=== PATIENT | female | born 1985 | race Asian ===

== ENCOUNTER 2019-01-08 23:33 | Emergency (ER) | payer BC ==
[2019-01-09] MEDS ORDERED: Albuterol/Ipratropium NEB.SOL* Albuterol 2.5 MG/Ipratropium 0.5 MG 3 ML INH ONE (02:05)
[2019-01-09 02:09] LABS: Hematocrit 40 % (35-47); Hemoglobin 14.5 g/dL (12.0-16.0); Mean Corpuscular HGB Conc 36 g/dL (31-36); Mean Corpuscular Hemoglobin 31 pg (27-31); Mean Corpuscular Volume 85 fL (80-97); Mean Platelet Volume 7.8 fL (7.4-10.4); Platelet Count 393 10^3/uL (150-450); Red Blood Count 4.71 10^6 /uL (3.70-4.87); Red Cell Distribution Width 13 % (10-15); White Blood Count 8.4 10^3/uL (3.5-10.8)
--- NOTE | 2019-01-09 02:10 | ED ---
Throat Pain/Nasal Congestion - HPI Summary HPI Summary: Patient is a 33 y/o F presenting to the ED for a chief complaint of productive cough for the last 2 weeks. Patient is present with her . Patient reports a fever, throat itchiness, dry mouth, chest pain with the cough, nausea , vomiting, and abdominal discomfort. Patient denies shortness of breath. Patient took OTC medications without relief. Allergies noted. - History of Current Complaint Chief Complaint: EDFluSymptoms Time Seen by Provider: 01/09/19 01:36 Hx Obtained From: Patient Onset/Duration: Sudden Onset, Still Present Severity: Moderate Associated Signs And Symptoms: Positive: Negative Cough: Productive - Allergies/Home Medications Allergies/Adverse Reactions: Allergies Allergy/AdvReac Type Severity Reaction Status Date / Time No Known Allergies Allergy Verified 01/08/19 23:39 PMH/Surg Hx/FS Hx/Imm Hx Previously Healthy: Yes Endocrine/Hematology History: Denies: Hx Diabetes Cardiovascular History: Denies: Hx Hypercholesterolemia, Hx Hypertension Respiratory History: Denies: Hx Asthma Sensory History: Denies: Hx Legally Blind, Hx Deafness, Hx Hearing Aid Opthamlomology History: Denies: Hx Legally Blind EENT History: Denies: Hx Deafness, Hx Hearing Aid - Surgical History Surgical History: None Surgery Procedure, Year, and Place: None Infectious Disease History: No Infectious Disease History: Denies: Traveled Outside the [place] in Last 30 Days - Family History Known Family History: Negative: Diabetes - Social History Occupation: Employed Full-time Lives: With Family Alcohol Use: None Hx Substance Use: No Substance Use Type: Reports: None Hx Tobacco Use: No Smoking Status (MU): Never Smoked Tobacco Review of Systems - ROS Summary Review of Systems Summary: NO HOME MEDICATIONS Positive: Fever - In vitals, 98.4 F Positive: Other - Positive throat itching and dry mouth Positive: Chest Pain - With coughing Positive: Cough. Negative: Shortness Of Breath Positive: Abdominal Pain - Abdominal discomfort, Vomiting, Nausea All Other Systems Reviewed And Are Negative: Yes Physical Exam - Summary Physical Exam Summary: General: Well-developed, Well-nourished FEMALE. No acute distress. HEENT: Normocephalic, Atraumatic. Eyes: Conjuctiva normal, PERRL. Ears: TMs within normal limits. Nares: (-) discharge, (-) erythema. Oropharynx: Clear, mucous membranes moist, (-) exudates. Neck: Soft, FROM, (-) lymphadenopathy, (-) thyromegaly, (-) JVD. Cardiovascular: Normal sinus rhythm, (-) murmur. Lungs: (-) rales, (-) rhonchi. Coughing, decreased air exchange bilaterally, mild tight wheezing throughout. Abdomen: Soft, non-tender, non-distended, (-) organomegaly, normal bowel sounds. Back: (-) CVA tenderness Extremities: No edema. Skin: Warm, dry, (-) rash. Neuro: Alert and oriented x3, no focal deficits. Psychiatric: Mood normal, affect normal. Triage Information Reviewed: Yes Vital Signs On Initial Exam: Initial Vitals Temp Pulse Resp BP Pulse Ox 98.4 F 92 17 165/118 97 01/08/19 23:37 01/08/19 23:37 01/08/19 23:37 01/08/19 23:37 01/08/19 23:37 Vital Signs Reviewed: Yes Procedures - Sedation Patient Received Moderate/Deep Sedation with Procedure: No Diagnostics - Vital Signs Vital Signs Temp Pulse Resp BP Pulse Ox 01/09/19 01:39 83 118/79 98 01/08/19 23:37 98.4 F 92 17 165/118 97 - Laboratory Result Diagrams: 01/09/19 01:59 01/09/19 02:00 Lab Statement: Any lab studies that have been ordered have been reviewed, and results considered in the medical decision making process. - Radiology Chest X-ray Radiology Interpretation Completed By: ED Physician Summary of Radiographic Findings: Chest X-ray IMPRESSION: No infiltrate. No pleural effusion. Reviewed and interpreted by Dr. Kumari; pending official radiology report. - EKG 02:09 Cardiac Rate: NL - 73 BPM EKG Rhythm: Sinus Rhythm ST Segment: Normal Ectopy: None Summary of EKG Findings: EKG at 02:09 reveals normal sinus rhythm with rate of 73 BPM, no acute changes, no ischemic changes, no STEMI. This EKG was reviewed and interpreted by Dr. Kumari. Re-Evaluation - Re-Evaluation First Re-Evaluation Time: 03:02 Change: Improved Comment: At 03:02, patient is feeling much better. Prior to disposition will be given a breathing treatment. EENT Course/Dx - Course Course Of Treatment: 33-year-old female with persistent cough for 2 weeks. Other systemic symptoms initially but now just the cough is remaining. Nonproductive. Patient with wheezing on exam. Responded well to breathing treatments. Started on steroids and given albuterol inhaler with MDI and education. Follow up with PCP. Follow up sooner for any worsening symptoms. - Diagnoses Provider Diagnoses: Bronchitis with bronchospasm Discharge ED - Sign-Out/Discharge Documenting (check all that apply): Patient Departure - Discharge - Discharge Plan Condition: Stable Disposition: HOME Prescriptions: predniSONE [Prednisone 20 MG TAB] 40 mg PO DAILY 5 Days #10 tablet Patient Education Materials: Acute Bronchitis (ED) Referrals: [facility] [Outside] Additional Instructions: Please follow up with your primary care physician within three days. Please return to ED for any new or worsening symptoms. - Billing Disposition and Condition Condition: STABLE Disposition: Home - Attestation Statements Document Initiated by Charis: Yes Documenting Scribe: Nava Mason Provider For Whom Judithibe is Documenting (Include Credential): Tayla Kumari MD Scribe Attestation: Nava Carranza scribed for Tayla Kumari MD on 01/09/19 at 0558. Scribe Documentation Reviewed: Yes Provider Attestation: The documentation as recorded by the Nava thrasher accurately reflects the service I personally performed and the decisions made by , Tayla Kumari MD Status of Scribe Document: Viewed
[2019-01-09 02:12] LABS: INR 0.95 (0.82-1.09)
[2019-01-09 02:18] LABS: Albumin 4.1 g/dL (3.2-5.2); CO2 Carbon Dioxide 27 mmol/L (22-32); Calcium 9.2 mg/dL (8.6-10.3); Chloride 100 mmol/L (101-111); Sodium 133 mmol/L (135-145)
[2019-01-09 02:24] LABS: Albumin/Globulin Ratio 1.2 (1-3); Alkaline Phosphatase 77 U/L (34-104); BUN/Creatinine Ratio 12.9 (8-20); Blood Urea Nitrogen 12 mg/dL (6-24); EGFR African American 83.5 (>60); Globulin 3.3 g/dL (2-4); Glucose 100 mg/dL (70-100); Total Protein 7.4 g/dL (6.4-8.9)
[2019-01-09 02:34] LABS: Anion Gap 6 mmol/L (2-11)
[2019-01-09 02:39] LABS: ABS Eosinophils 0.2 10^3/ul (0-0.6); ABS Lymphocytes 2.6 10^3/ul (1.0-4.8); ABS Monocytes 0.5 10^3/ul (0-0.8); ABS Neutrophils 5.1 10^3/ul (1.5-7.7); Eosinophil % 2.6 %; Lymphocyte % 30.9 %; Nucleated Red Blood Cells % 0.2
[2019-01-09 02:46] LABS: Troponin I 0.01 ng/mL (<0.04)
[2019-01-09] MEDS ORDERED: Albuterol 2.5 MG/3 ML NEB.SOL* (0.083%) INH ONE (02:48)
[2019-01-09 02:50] LABS: HCG Pregnancy 0.72 mIU/mL
[2019-01-09 02:54] LABS: ALT 31 U/L (7-52)
[2019-01-09] MEDS ORDERED: Albuterol HFA INHALER* 8 gm MDI INH ONE ×2 (03:17→03:33)
[2019-01-09] MEDS ORDERED: predniSONE TAB* 20 MG PO ONE (03:25)
[2019-01-09 03:33] VITALS: BP 112/84
== END 2019-01-09 03:20 | disposition home or self-care (01) ==
LOC: ED 23:33
DX: J40 Bronchitis, not specified as acute or chronic (principal); R50.9 Fever, unspecified; R07.9 Chest pain, unspecified; R10.9 Unspecified abdominal pain
CPT/HCPCS: 36415; 71046; 80053; 83605; 83880; 84484; 84702; 85025; 85610; 87040; 93005; 99283; A9270-GY; J7512